=== PATIENT | female | born 1940 | race Caucasian/White ===

== ENCOUNTER 2016-07-26 09:32 | Emergency (ER) | payer OTHER ==
[2016-07-26 09:39] VITALS: BP 130/80; PULSE 104; TEMP 97.7; BMI 26.7
[2016-07-26] MEDS ORDERED: INDOMETHACIN 50 MG CAPSULE PO ONE (10:17)
--- NOTE | 2016-07-26 10:28 | PDOC ---
History of Present Illness - General Chief Complaint: Pain, Acute Stated Complaint: LT SHOULDER PAIN, CHEST PAIN Time Seen by Provider: 07/26/16 10:04 History Source: Patient Exam Limitations: No Limitations - History of Present Illness Initial Comments: 07/26/16 10:23 76 yr female states her left elbow is red and painful after hitting elbow on her chair last night. no fever no chills, no chest pain or shortness of breath. Pt has history of arthritis. Occurred: reports: yesterday Severity: reports: mild Upper Extremity Pain Location: left: elbow Extremity Pain Location - Extremity Pain Location Extremity Pain Locations: left: elbow Past History - Past Medical History Allergies/Adverse Reactions: Allergies Allergy/AdvReac Type Severity Reaction Status Date / Time No Known Allergies Allergy Verified 07/26/16 09:39 Home Medications: Ambulatory Orders Hydrochlorothiazide 25 mg PO ASDIR 07/26/16 Indomethacin [Indocin -] 50 mg PO BID #14 capsule 07/26/16 Lisinopril [Prinivil -] 40 mg PO DAILY 07/26/16 Omeprazole 20 mg PO ASDIR 07/26/16 Rosuvastatin Calcium 10 mg PO ASDIR 07/26/16 GI Disorders: Yes (ACID REFLUX) HTN: Yes Hypercholesterolemia: Yes - Family Disease History Comment:: 07/26/16 10:26 unk - Immunization History Immunization Up to Date: Yes - Psycho/Social/Smoking Cessation Hx Suicidal Ideation: No Smoking Status: Yes Smoking History: Current every day smoker Number of Cigarettes Smoked Daily: 10 Information on smoking cessation initiated: No Hx Alcohol Use: No Drug/Substance Use Hx: No Review of Systems - Review of Systems Able to Perform ROS?: Yes Is the patient limited Armenian proficient: No Constitutional: No: Symptoms Reported HEENTM: No: Symptoms Reported Respiratory: No: Symptoms reported Cardiac (ROS): No: Symptoms Reported ABD/GI: No: Symptoms Reported : No: Symptoms Reported Musculoskeletal: Yes: Symptoms Reported Integumentary: Yes: Symptoms Reported *Physical Exam - Vital Signs Last Vital Signs Temp Pulse Resp BP Pulse Ox 97.7 F 104 H 18 130/80 97 07/26/16 09:36 07/26/16 09:36 07/26/16 09:36 07/26/16 09:36 07/26/16 09:36 - Physical Exam General Appearance: Yes: Nourished, Appropriately Dressed HEENT: positive: EOMI, KAMILAH, Normal ENT Inspection, TMs Normal, Pharynx Normal Neck: positive: Supple Respiratory/Chest: positive: Lungs Clear, Normal Breath Sounds Cardiovascular: positive: Regular Rhythm, Regular Rate Musculoskeletal: positive: Normal Inspection Extremity: positive: Normal Capillary Refill, Normal Inspection, Tender (left elbow ), Erythema Integumentary: positive: Normal Color, Dry, Warm Neurologic: positive: Fully Oriented, Alert, Normal Mood/Affect, Normal Response , Motor Strength 10/02 ED Treatment Course - LABORATORY CBC & Chemistry Diagram: 07/26/16 10:17 - RADIOLOGY Radiology Studies Ordered: Category Date Time Status ELBOW-LEFT [RAD] Stat Radiology 07/26/16 10:17 Ordered Medical Decision Making - Medical Decision Making 07/26/16 10:28 cc: elbow red, tender , pt has FROM of the elbow joint will xray , check labs, indocin for pain 07/26/16 12:15 uric acid is negative, labs normal, xray is negative pt states pain improved after taking indocin . pt will follow with ortho for follow up or PMD pt states she can see her primary care tomorrow which I have stated is important for follow up I have discussed the risks (bleeding, kidney failure, heart attack and or not limited to but including the discussed ) of indocin and it is not to be taken for longer than prescribed . patient is aware. 07/26/16 13:02 07/26/16 13:03 *DC/Admit/Observation/Transfer Diagnosis at time of Disposition: Tendonitis - Discharge Dispostion Disposition: HOME Condition at time of disposition: Good - Prescriptions Prescriptions: Indomethacin [Indocin -] 50 mg PO BID #14 capsule - Referrals Referrals: Shakeel Garcia MD [Primary Care Provider] - - Patient Instructions Additional Instructions: take indocin as directed for pain apply cool compresses to the elbow a cool cloth can be helpful follow with your doctor tomorrow for follow up avoid overusing the left elbow any chest pain return to ER right away stop taking NSAIDS
[2016-07-26 11:36] LABS: MCH 31.5 pg (25.7-33.7); MCHC 34.5 g/dl (32.0-36.0); MEAN CELL VOLUME 91.4 fl (80-96); MEAN PLT VOLUME 8.9 fl (7.5-11.1); PLATELET COUNT 240 K/MM3 (134-434); RDW 13.2 % (11.6-15.6)
== END 2016-07-26 12:30 | disposition home or self-care (01) ==
LOC: JERFT 09:32
DX: M25.522 Pain in left elbow (principal); M77.8 Other enthesopathies, not elsewhere classified; W22.8XXA Striking against or struck by other objects, initial encounter; Y93.89 Activity, other specified; Y92.038 Other place in apartment as the place of occurrence of the external cause; I10 Essential (primary) hypertension; E78.00 Pure hypercholesterolemia, unspecified; K21.9 Gastro-esophageal reflux disease without esophagitis; F17.210 Nicotine dependence, cigarettes, uncomplicated
CPT/HCPCS: 36415; 73070-TC-LT; 84550; 85027; 99281-25

== ENCOUNTER 2017-08-09 12:16 | Emergency (ER) | payer OTHER ==
[2017-08-09 12:30] VITALS: BP 121/62; PULSE 104; TEMP 97.7; BMI 30.9
--- NOTE | 2017-08-09 13:21 | PDOC ---
History of Present Illness - General Chief Complaint: Bite Stated Complaint: DOG BITE Time Seen by Provider: 08/09/17 12:43 History Source: Patient Exam Limitations: No Limitations - History of Present Illness Initial Comments: 08/09/17 13:21 CHIEF COMPLAINT: Dog bite to left fourth finger, and hand. HISTORY OF PRESENT ILLNESS: Is a 77-year-old female, history of hypertension and high cholesterol reports that she was outside feeding feral cats, had cat food in her hand she walked by a neighbor who was walking their dog on a leash she asked if the dog was friendly dog then jumped up and bit her on the left hand. Patient reports that she was stunned and did not ask the owner/photographer for the dogs information. Tetanus is not up-to-date. She knows that the dog's domesticated and lives in her neighborhood. 08/09/17 13:22 Past History - Past Medical History Allergies/Adverse Reactions: Allergies Allergy/AdvReac Type Severity Reaction Status Date / Time No Known Allergies Allergy Verified 07/26/16 09:39 Home Medications: Ambulatory Orders Hydrochlorothiazide 25 mg PO ASDIR 07/26/16 Indomethacin [Indocin -] 50 mg PO BID #14 capsule 07/26/16 Lisinopril [Prinivil -] 40 mg PO DAILY 07/26/16 Omeprazole 20 mg PO ASDIR 07/26/16 Rosuvastatin Calcium 10 mg PO ASDIR 07/26/16 Amox-Tr/K Cl [Augmentin - 875Mg Tablet] 1 tab PO BID #14 tablet 08/09/17 COPD: No GI Disorders: Yes (ACID REFLUX) HTN: Yes Hypercholesterolemia: Yes - Immunization History Immunization Up to Date: Yes - Suicide/Smoking/Psychosocial Hx Smoking Status: Yes Smoking History: Current every day smoker Number of Cigarettes Smoked Daily: 10 Information on smoking cessation initiated: No Hx Alcohol Use: No Drug/Substance Use Hx: No Review of Systems - Review of Systems Constitutional: No: Symptoms Reported Respiratory: No: Symptoms reported Cardiac (ROS): No: Symptoms Reported Musculoskeletal: No: Joint Pain, Joint Swelling Integumentary: Yes: Other (2 cm laceration to the left third finger, palmar surface total superficial abrasions to hand) All Other Systems: Reviewed and Negative *Physical Exam - Vital Signs Last Vital Signs Temp Pulse Resp BP Pulse Ox 97.7 F 104 H 18 121/62 95 08/09/17 12:27 08/09/17 12:27 08/09/17 12:27 08/09/17 12:27 08/09/17 12:27 - Physical Exam General Appearance: Yes: Appropriately Dressed. No: Apparent Distress Respiratory/Chest: positive: Lungs Clear, Normal Breath Sounds Cardiovascular: positive: Regular Rhythm, Regular Rate Musculoskeletal: positive: Normal Inspection Integumentary: positive: Ecchymosis (ecchymosis to dorsum of right hand, abrasion to palm, 2 cm laceration to palmar surface of left fourth finger.) Neurologic: positive: Alert, Normal Mood/Affect, Normal Response, Motor Strength 5/5 Procedures - Laceration/Wound Repair Left Hand Wound Length: to 2.5 cm Wound's Depth, Shape: linear Irrigated w/ Saline: Yes Betadine Prep: Yes Anesthesia: 1% Lidocaine Suture Size/Type: 5:0 Number of Sutures: 1 Progress: 08/09/17 17:29 Patient with 1 cm laceration to palm of left hand with mild adipose protruding, 1 suture placed to approximate borders. Patient opted not to have area anesthetized one single suture placed without difficulty, patient tolerated well. I've explained to patient that I cannot fully close area because it is a dog bite, after single suture wound edges were well approximated with area able to drain. She was satisfied with cosmesis. Medical Decision Making - Medical Decision Making 08/09/17 13:25 A/P: Patient here for dog bite to left hand, spoke to the Department of Health patient does note that the dog lives in her neighborhood she has 10 days to find the dog she currently does not meet criteria closed [place] a masticated. Department of Health will be in contact with her, Boostrix given. Will DC on Augmentin. *DC/Admit/Observation/Transfer Diagnosis at time of Disposition: Dog bite Qualifiers: Encounter type: initial encounter Qualified Code(s): W54.0XXA - Bitten by dog, initial encounter - Discharge Dispostion Disposition: HOME Condition at time of disposition: Stable Admit: No - Prescriptions Prescriptions: Amox-Tr/K Cl [Augmentin - 875Mg Tablet] 1 tab PO BID #14 tablet - Referrals Referrals: Shakeel Garcia MD [Primary Care Provider] - - Patient Instructions Printed Discharge Instructions: How to Care for a Domestic Animal Bite Additional Instructions: Keep area clean dry and intact Keep dressing on until tomorrow If any increased bleeding through the dressing return immediately to emergency department Keep area clean dry and intact bacitracin x3 days, then let it dry out Please return in 10 days for suture removal. Please return immediately to emergency department with any increased redness, swelling, signs of infection - Post Discharge Activity
== END 2017-08-09 13:50 | disposition home or self-care (01) ==
LOC: JERFT 12:16
PROC: 0HQGXZZ Repair Left Hand Skin, External Approach (ICD-10-PCS; principal; 2017-08-09)
DX: S61.255A Open bite of left ring finger without damage to nail, initial encounter (principal); W54.0XXA Bitten by dog, initial encounter; Y93.K9 Activity, other involving animal care; Y92.414 Local residential or business street as the place of occurrence of the external cause; Y99.8 Other external cause status; I10 Essential (primary) hypertension; E78.00 Pure hypercholesterolemia, unspecified
CPT/HCPCS: 12001; 99281-25

== ENCOUNTER 2020-09-03 20:41 | Emergency (ER) | payer OTHER ==
[2020-09-03 20:55] VITALS: BP 151/92; PULSE 100; TEMP 97.8; BMI 29.8
== END 2020-09-03 21:08 | disposition home or self-care (01) ==
LOC: FER 20:41
DX: L23.9 Allergic contact dermatitis, unspecified cause (principal)
CPT/HCPCS: 99281-25

== ENCOUNTER 2023-10-30 14:04 | Emergency (ER) | payer OTHER ==
[2023-10-30] MEDS ORDERED: ONDANSETRON 4 MG/2 ML VIAL ONE (15:06)
[2023-10-30 15:11] VITALS: BMI 28.3
[2023-10-30] MEDS: ONDANSETRON 4 MG/2 ML VIAL IVPUSH ONE (15:15)
[2023-10-30 15:23] LABS: BASO % 0.6 % (0-2.0); EOS % 0.4 % (0-4.5); HEMATOCRIT 43.4 % (32.4-45.2); HEMOGLOBIN 14.7 GM/dL (10.7-15.3); MCHC 33.8 g/dl (32.0-36.0); MEAN CELL VOLUME 88.7 fl (80-96); MEAN PLT VOLUME 7.8 fl (7.5-11.1); MONO % 11.6 % (3.8-10.2); NEUT % 74.4 % (42.8-82.8); PLATELET COUNT 170 10^3/uL (134-434); RBC 4.89 M/mm3 (3.60-5.2); RDW 14.1 % (11.6-15.6); WHITE BLOOD COUNT 6.3 K/mm3 (4.0-10.0)
[2023-10-30 15:30] LABS: INR 0.97 (0.83-1.09)
[2023-10-30 15:33] LABS: ACTIVATED PTT 28.2 SECONDS (25.2-36.5)
[2023-10-30 15:39] LABS: POTASSIUM 3.7 mmol/L (3.5-5.1)
[2023-10-30 15:42] LABS: ALBUMIN 2.9 g/dl (3.4-5.0)
[2023-10-30 15:43] LABS: BLOOD UREA NITROGEN 17.3 mg/dL (7-18); MAGNESIUM 1.8 mg/dL (1.8-2.4)
[2023-10-30 15:45] LABS: CREATININE 1.1 mg/dL (0.55-1.3); PHOSPHOROUS 3.3 mg/dL (2.5-4.9)
[2023-10-30 15:47] LABS: BILIRUBIN,TOTAL 0.5 mg/dL (0.2-1)
[2023-10-30 16:28] LABS: EPI CELLS 19 /uL (0-25.1); HYALINE CASTS 0 /uL (0-3.1); PH,URINE 5.5 (5.0-8.0); URINE APPEARANCE CLEAR; URINE BACTERIA 761 /uL (0-1359); URINE BILIRUBIN NEGATIVE (NEGATIVE); URINE COLOR YELLOW; URINE GLUCOSE (UA) NEGATIVE (NEGATIVE); URINE KETONE NEGATIVE (NEGATIVE); URINE LEUK ESTERASE NEGATIVE (NEGATIVE); URINE NITRITE NEGATIVE (NEGATIVE); URINE PROTEIN NEGATIVE (NEGATIVE); URINE UROBILINOGEN 0.2 mg/dL (0.2-1.0); URINE WBC 20 /uL (0-25.8)
[2023-10-30 17:13] VITALS: PULSE 89; RESP 20
[2023-10-30 17:25] VITALS: BP 107/71; TEMP 97.6
[2023-10-30 18:08] LABS: URINE RBC 125.3 /uL (0-23.9); YEAST NONE SEEN (NEGATIVE)
== END 2023-10-30 17:20 | disposition short-term general hospital (02) ==
LOC: JER 14:04
PROC: 3E033GC Introduction of Other Therapeutic Substance into Peripheral Vein, Percutaneous Approach (ICD-10-PCS; principal; 2023-10-30)
DX: I71.00 Dissection of unspecified site of aorta (principal); R10.13 Epigastric pain; R19.7 Diarrhea, unspecified; U07.1 COVID-19
CPT/HCPCS: 0241U-QW; 36415; 71045-TC-FY; 71275-TC; 74174-TC; 80053; 81003; 83690; 83735; 84100; 84484; 85025; 85610; 85730; 86850; 86900; 86901; 87086; 93005; 93010; 99285-25; Q9967

== ENCOUNTER 2024-12-04 20:15 | Emergency (ER) | payer OTHER ==
[2024-12-04 20:47] VITALS: BP 162/92; PULSE 96; RESP 20; TEMP 97.5; BMI 29.9
== END 2024-12-04 22:15 | disposition home or self-care (01) ==
LOC: FER 20:15
DX: S90.112A Contusion of left great toe without damage to nail, initial encounter (principal); R60.0 Localized edema; X58.XXXA Exposure to other specified factors, initial encounter
CPT/HCPCS: 93971-TC; 99284-25